=== PATIENT | female | born 1995 | race Caucasian/White ===

== ENCOUNTER 2016-06-22 18:45 | Emergency (ER) | payer MEDICAID ==
--- NOTE | 2016-06-22 19:01 | UCPHY ---
H & P Patient Type: Established HPI/ROS: HPI CHIEF COMPLAINT: Dysuria, urinary frequency HISTORY OF PRESENT ILLNESS: The patient very pleasant 21-year-old female significant past medical history for fibromyalgia, anxiety, comes urgent care with dysuria urinary frequency x4 days. No fever no vomiting. No significant abdominal pain. She thinks she may have a urinary tract infection. Past Medical History: Fibromyalgia, anxiety Past Surgical History: Appendectomy, cholecystectomy Social History: unemployed, denies drugs alcohol tobacco products Family History: noncontributory ROS REVIEW OF SYSTEMS: A comprehensive 10 point review of systems is otherwise negative aside from elements mentioned in the history of present illness. Exam Constitutional appears well nontoxic, triage nursing summary reviewed, vital signs reviewed, awake/alert. Eyes normal conjunctivae and sclera, EOMI, PERRLA. HENT normal inspection, atraumatic, moist mucus membranes, no epistaxis, neck supple/ no meningismus, no raccoon eyes. Respiratory clear to auscultation bilaterally, normal breath sounds, no respiratory distress, no wheezing. Cardiovascular rate normal, regular rhythm, no murmur, no edema, distal pulses normal. Gastrointestinal soft, non-tender, no rebound, no guarding, normal bowel sounds, no distension, no pulsatile mass. Genitourinary no CVA tenderness. Musculoskeletal no midline vertebral tenderness, full range of motion, no calf swelling, no tenderness of extremities, no meningismus, good pulses, neurovascularly intact. Skin pink, warm, & dry, no rash, skin atraumatic. Neurologic awake, alert and oriented x 3, AAOx3, moves all 4 extremities equally, motor intact, sensory intact, CN II-XII intact, normal cerebellar, normal vision, normal speech. Psychiatric normal mood/affect. Heme/Lymph/Immune no lymphadenopathy. Differential Diagnosis: includes but is not limited to in a particular order, urinary tract infection, cystitis, pyelonephritis. Medical Decision Making: Plan for this patient is to have a urinalysis. Re-evaluation: 1951: Urinalysis does not indicate that she has UTI of send a urine culture patient is requesting treatment anyway and she is having dysuria and urinary frequency. She denies vaginal complaints, denies vaginal discharge, denies lower abdominal pain. I will prescribe her Keflex and Pyridium. She understands return to the Urgent Care she has any worsening symptoms questions or concerns. Urine culture has been ordered. Source: Patient - Medical/Surgical History Hx Asthma: Yes Hx Chronic Respiratory Disease: No Hx Diabetes: No Hx Cardiac Disease: No Hx Renal Disease: No Hx Cirrhosis: No Hx Alcoholism: No Hx HIV/AIDS: No Hx Splenectomy or Spleen Trauma: No Other PMH: asthma. ibs - Family History Significant Family History: No pertinent family hx - Social History Smoking Status: Never smoked Constitutional: Initial Vital Signs Temperature (C) 36.6 C 06/22/16 19:14 Heart Rate 112 H 06/22/16 19:14 Respiratory Rate 18 06/22/16 19:14 Blood Pressure 115/78 06/22/16 19:14 O2 Sat (%) 96 06/22/16 19:14 O2 Delivery Mode Room Air Allergies/Adverse Reactions: haloperidol [From Haldol] Allergy (Verified 07/12/15 16:45) haloperidol lactate [From Haldol] Allergy (Verified 07/12/15 16:45) ketorolac tromethamine [From Toradol] Allergy (Verified 07/12/15 16:45) Home Medications: Medication Instructions Recorded Albuterol Hfa Anes Only 07/12/15 Ativan 06/22/16 Cephalexin [Keflex] 500 mg PO Q6H #28 cap 06/22/16 Cephalexin [Keflex] 500 mg PO Q6H #28 cap 06/22/16 LORazepam 06/22/16 Phenazopyridine HCl [Pyridium] 200 mg PO TID #6 tab 06/22/16 Zofran 06/22/16 traMADol 06/22/16 Medical Decision Making - Data Points Laboratory Results: 06/22/16 19:17 Urine Color YELLOW Urine Appearance CLEAR Urine pH 7.5 (5.0-7.5) Ur Specific [place] 1.015 (1.002-1.030) Urine Protein NEGATIVE (NEGATIVE) Urine Ketones NEGATIVE (NEGATIVE) Urine Blood NEGATIVE (NEGATIVE) Urine Nitrate NEGATIVE (NEGATIVE) Urine Bilirubin NEGATIVE (NEGATIVE) Urine Urobilinogen 0.2 EU EU (0.2-1.0) Ur Leukocyte Esterase NEGATIVE (NEGATIVE) Ur Culture Indicated? NOT INDICATED (NI) Urine Glucose NEGATIVE (NEGATIVE) Departure - Departure Disposition: Home, Routine, Self-Care Clinical Impression: UTI (urinary tract infection) Qualifiers: Urinary tract infection type: acute cystitis Hematuria presence: with hematuria Qualified Code(s): N30.01 - Acute cystitis with hematuria Condition: Good Instructions: Urinary Tract Infection in Women (ED) Additional Instructions: 1. Make sure to drink lots of fluids. 2. please take your antibiotic as prescribed. 3. return to the urgent care or emergency room if you have worsening symptoms questions or concerns. Prescriptions: Cephalexin [Keflex] 500 mg PO Q6H #28 cap Cephalexin [Keflex] 500 mg PO Q6H #28 cap Phenazopyridine HCl [Pyridium] 200 mg PO TID #6 tab - PQRS PQRS Measurement: n/ a
[2016-06-22 19:16] VITALS: BP 115/78; PULSE 112
[2016-06-22 19:21] LABS: COLOR YELLOW; LEUKOCYTE ESTERASE,URINE NEGATIVE (NEGATIVE); NITRITE,URINE NEGATIVE (NEGATIVE); PH,URINE 7.5 (5.0-7.5)
[2016-06-22 20:44] VITALS: RESP 20; TEMP 98.2; O2SAT 95
== END 2016-06-22 20:41 | disposition home or self-care (01) ==
LOC: CED 18:45
DX: N30.01 Acute cystitis with hematuria (principal); K58.9 Irritable bowel syndrome, unspecified; J45.909 Unspecified asthma, uncomplicated; Z90.49 Acquired absence of other specified parts of digestive tract; Z90.89 Acquired absence of other organs
CPT/HCPCS: 81003-PO; 99214-PO; G0463-PO

== ENCOUNTER 2016-11-11 16:58 | Emergency (ER) | payer MEDICAID ==
[2016-11-11 17:36] VITALS: RESP 20
[2016-11-11 17:37] LABS: COLOR YELLOW; LEUKOCYTE ESTERASE,URINE NEGATIVE (NEGATIVE); NITRITE,URINE NEGATIVE (NEGATIVE); PH,URINE 7.5 (5.0-7.5)
--- NOTE | 2016-11-11 17:41 | EDPHY ---
H & P Time Seen by Provider: 11/11/16 17:32 HPI/ROS: CHIEF COMPLAINT: Dysuria HISTORY OF PRESENT ILLNESS: Patient is a 21-year-old female who presents to the emergency department with dysuria, frequency, bilateral flank pain, and periumbilical pain. Her pain is mild to moderate. It is been present the past week. It has not changed in location or severity. Patient denies fevers or chills. Her last menstrual period was 2.5 weeks ago. She denies being sexually active. REVIEW OF SYSTEMS: My complete review of systems is negative except as mentioned in the HPI. Past Medical/Surgical History: Negative Past surgical history: Cholecystectomy, appendectomy Social history: The patient does not smoke Smoking Status: Never smoked Physical Exam: Vitals noted. Afebrile GENERAL: Well-appearing, in no acute distress, alert. HEENT: Eyes normal to inspection, normal pharynx, no signs of dehydration. NECK: No thyromegaly, no lymphadenopathy, supple. RESPIRATORY: Clear to auscultation bilaterally, no rales, rhonchi or wheezing. CVS: Regular rate and rhythm, no rubs, murmurs, or gallops. ABDOMEN: Soft, mild suprapubic tenderness to palpation with no rebound or guarding, nondistended, no organomegaly. BACK: Normal to inspection, no CVA tenderness. SKIN: Normal color, no rash, warm, dry. No pallor. EXTREMITIES: No pedal edema, no calf tenderness, no Homans sign or cords, no joint swelling. NEURO/PSYCH: [Alert and oriented x3, normal mood and affect, normal motor sensory exam. Constitutional: Initial Vital Signs Temperature (C) 36.7 C 11/11/16 17:34 Heart Rate 91 11/11/16 17:34 Respiratory Rate 20 11/11/16 17:34 Blood Pressure 113/78 11/11/16 17:34 O2 Sat (%) 93 11/11/16 17:34 O2 Delivery Mode Room Air Allergies/Adverse Reactions: haloperidol [From Haldol] Allergy (Verified 11/11/16 17:19) haloperidol lactate [From Haldol] Allergy (Verified 11/11/16 17:19) ketorolac tromethamine [From Toradol] Allergy (Verified 11/11/16 17:19) Home Medications: Medication Instructions Recorded Albuterol Hfa Anes Only 07/12/15 Ativan 06/22/16 LORazepam 06/22/16 Phenazopyridine HCl [Pyridium] 200 mg PO TID #6 tab 06/22/16 Zofran 06/22/16 traMADol 06/22/16 Cephalexin [Keflex (*)] 500 mg PO QID #12 cap 11/11/16 Phenazopyridine HCl [Pyridium] 100 mg PO TID #6 tab 11/11/16 Medical Decision Making ED Course/Re-evaluation: In the emergency department I discussed possible etiologies with the patient. I answered all her questions. Urine was obtained. Patient's urine had trace blood and trace bacteria. was negative. I re-evaluated the patient. She was sitting comfortably on the bed playing a video game. She was in no distress. On re-examination she had mild suprapubic tenderness to palpation. Discussed her urine findings. Urine culture will be sent. The patient was given Keflex 500 mg orally and Pyridium 200 mg orally for possible urinary tract infection. She was given a prescription. She is given warnings prior to leaving. She will return with worsening symptoms. She understands limitations of the workup thus far. Differential Diagnosis: Differential includes but is not limited to urinary tract infection, pyelonephritis, cystitis, , ectopic , ovarian cyst, ovarian torsion, STD Patient appears well on initial on repeat examination. She has focal suprapubic tenderness to palpation. Although her urine only showed trace bacteria and blood, 9 concerned that she could have an underlying urinary tract infection. She does not appear septic or toxic. Patient complains of bilateral flank discomfort but has no CVA tenderness on exam. I think pyelonephritis is less likely. - Data Points Laboratory Results: 11/11/16 11/11/16 17:30 17:30 Urine Color YELLOW Urine Appearance CLEAR Urine pH 7.5 (5.0-7.5) Ur Specific [place] 1.015 (1.002-1.030) Urine Protein NEGATIVE (NEGATIVE) Urine Ketones NEGATIVE (NEGATIVE) Urine Blood TRACE H (NEGATIVE) Urine Nitrate NEGATIVE (NEGATIVE) Urine Bilirubin NEGATIVE (NEGATIVE) Urine Urobilinogen 0.2 EU EU (0.2-1.0) Ur Leukocyte Esterase NEGATIVE (NEGATIVE) Urine RBC OCCASIONAL /hpf /hpf (0-3) Urine WBC NONE SEEN /hpf /hpf (0-3) Ur Epithelial Cells 2+ /lpf H /lpf (NONE-1+) Urine Bacteria TRACE /hpf H /hpf (NONE SEEN) Urine Glucose NEGATIVE (NEGATIVE) Urine Test NEGATIVE Departure - Departure Disposition: Home, Routine, Self-Care Clinical Impression: Urinary tract infection Qualifiers: Urinary tract infection type: acute cystitis Hematuria presence: with hematuria Qualified Code(s): N30.01 - Acute cystitis with hematuria Condition: Good Instructions: Urinary Tract Infection in Women (ED) Referrals: JULIET PICKARD [Other] - 5-7 days, call for appt. Prescriptions: Cephalexin [Keflex (*)] 500 mg PO QID #12 cap Phenazopyridine HCl [Pyridium] 100 mg PO TID #6 tab
[2016-11-11 17:52] LABS: BACTERIA TRACE /hpf (NONE SEEN); RBC,URINE OCCASIONAL /hpf (0-3); WBC,URINE NONE SEEN /hpf (0-3)
[2016-11-11] MEDS ORDERED: PHENAZOPYRIDINE HCL 200 MG TAB ONE (18:11)
[2016-11-11] MEDS ORDERED: PHENAZOPYRIDINE HCL 200 MG TAB PO ONE (18:13)
[2016-11-11] MEDS ORDERED: CEPHALEXIN 500 MG CAP PO ONE (18:13)
[2016-11-11 18:24] VITALS: BP 118/56; PULSE 88; TEMP 98.2; O2SAT 95
== END 2016-11-11 18:29 | disposition home or self-care (01) ==
LOC: CED 16:58
DX: N30.01 Acute cystitis with hematuria (principal); B96.20 Unspecified Escherichia coli [E. coli] as the cause of diseases classified elsewhere; Z90.49 Acquired absence of other specified parts of digestive tract
CPT/HCPCS: 81003-PO; 81015-PO; 81025-PO

== ENCOUNTER → 2016-12-31 | Outpatient (CLI) | payer MEDICAID | LOC: CIMAGING 08:44 | PROVIDERS: ATTEND Physician Assistant | DX: R10.10 Upper abdominal pain, unspecified (principal) | CPT/HCPCS: 76700-PO ==

== ENCOUNTER 2017-01-05 14:37 | Emergency (ER) | payer MEDICAID ==
[2017-01-05 14:48] VITALS: TEMP 98.1
--- NOTE | 2017-01-05 14:53 | EDPHY ---
HPI/HX/ROS/PE/MDM Narrative: CHIEF COMPLAINT: Abdominal pain, diarrhea HPI: The patient is a 21-year-old female with multiple medical problems including bipolar disorder, chronic abdominal pain, irritable bowel syndrome. She complains of several days of diffuse abdominal pain-"it hurts all over "as well as at up to 5 episodes of diarrhea a day. She states her current symptoms feel different than her chronic abdominal pain and feel more like an episode approximately 1 month ago when she was diagnosed with C diff. She was treated with oral antibiotics at that time. She denies fever. She denies blood in stool. REVIEW OF SYSTEMS: Aside from elements discussed in the HPI, a comprehensive 10-point review of systems was reviewed and is negative. PMH:Fibromyalgia. Numerous visits to ED for abdominal pain. Bipolar. Irritable bowel syndrome. History of C diff. SOCIAL HISTORY:Unemployed. Denies alcohol or drug use. PHYSICAL EXAM: General:Patient is alert, in no acute distress. ENT:Eyes are normal to inspection. ENT inspection normal. Neck: Normal inspection. Full range of motion. Respiratory:No respiratory distress. Breath sounds normal bilaterally. Cardiovascular: Regular rate and rhythm. Strong peripheral pulses. Normal cap refill. Abdomen:The abdomen is nontender to palpation. There are no peritoneal signs. There are normal bowel sounds. Back: Normal to inspection. No tenderness to palpation. Skin: Normal color. No rash. Warm and dry. Multiple parallel linear cm associated with cutting is present on left forearm. Extremities: Normal appearance. Full range of motion. Neuro: Oriented x3. Normal motor function. Normal sensory function. ED Course: Review of [facility] indicates: Indeterminate result C diff test on 11/19, negative C diff test on 11/26, both at [facility]. MDM: This is a young healthy female who presents with recurrent abdominal pain. She is concerned for C diff infection. However, her symptomatology does not seem consistent with this, nor does the fact that she has a normal blood work. I reviewed her chart on [facility], which indicates that the only positive test was action and indeterminate test followed by a negative test for C diff, so I question whether the patient truly had C diff at any point. The patient was able to provide us a stool sample after several attempts at trying. Given the fact that this has to be brown read over to the main hospital and then takes several more hours from there, we will discharge the patient home and have her call in for these results. If positive, she will require oral antibiotics for C diff infection. - Data Points Laboratory Results: Laboratory Results 01/05/17 15:10 01/05/17 15:10 01/05/17 01/05/17 01/05/17 16:50 15:10 15:10 WBC RBC Hgb Hct MCV MCH MCHC RDW Plt Count MPV Neut % (Auto) Lymph % (Auto) Wilkes % (Auto) Eos % (Auto) Baso % (Auto) Nucleat RBC Rel Count Absolute Neuts (auto) Absolute Lymphs (auto) Absolute Monos (auto) Absolute Eos (auto) Absolute Basos (auto) Absolute Nucleated RBC Immature Gran % Immature Gran # Sodium 141 mEq/L mEq/L (134-144) Potassium 3.9 mEq/L mEq/L (3.5-5.2) Chloride 104 mEq/L mEq/L (97-110) Carbon Dioxide 22 mEq/l mEq/l (22-31) Anion Gap 15 mEq/L mEq/L (8-16) BUN 9 mg/dL mg/dL (7-23) Creatinine 0.6 mg/dL mg/dL (0.6-1.0) Estimated GFR > 60 Glucose 95 mg/dL mg/dL (70-100) Calcium 9.6 mg/dL mg/dL (8.5-10.4) Beta HCG, Qual NEGATIVE C. difficile Tox (PCR) Pending 01/05/17 15:10 WBC 5.96 10^3/uL 10^3/uL (3.80-9.50) RBC 5.12 10^6/uL 10^6/uL (4.18-5.33) Hgb 14.4 g/dL g/dL (12.6-16.3) Hct 42.1 % % (38.0-47.0) MCV 82.2 fL fL (81.5-99.8) MCH 28.1 pg pg (27.9-34.1) MCHC 34.2 g/dL g/dL (32.4-36.7) RDW 13.2 % % (11.5-15.2) Plt Count 216 10^3/uL 10^3/uL (150-400) MPV 11.7 fL fL (8.7-11.7) Neut % (Auto) 67.4 % % (39.3-74.2) Lymph % (Auto) 23.7 % % (15.0-45.0) Wilkes % (Auto) 5.9 % % (4.5-13.0) Eos % (Auto) 2.2 % % (0.6-7.6) Baso % (Auto) 0.5 % % (0.3-1.7) Nucleat RBC Rel Count 0.0 % % (0.0-0.2) Absolute Neuts (auto) 4.02 10^3/uL 10^3/uL (1.70-6.50) Absolute Lymphs (auto) 1.41 10^3/uL 10^3/uL (1.00-3.00) Absolute Monos (auto) 0.35 10^3/uL 10^3/uL (0.30-0.80) Absolute Eos (auto) 0.13 10^3/uL 10^3/uL (0.03-0.40) Absolute Basos (auto) 0.03 10^3/uL 10^3/uL (0.02-0.10) Absolute Nucleated RBC 0.00 10^3/uL 10^3/uL (0-0.01) Immature Gran % 0.3 % % (0.0-1.1) Immature Gran # 0.02 10^3/uL 10^3/uL (0.00-0.10) Sodium Potassium Chloride Carbon Dioxide Anion Gap BUN Creatinine Estimated GFR Glucose Calcium Beta HCG, Qual C. difficile Tox (PCR) Medications Given: Discontinued Medications Sodium Chloride (Ns) 1,000 mls @ 0 mls/hr IV EDNOW ONE; Wide Open PRN Reason: Protocol Stop: 01/05/17 14:58 Last Admin: 01/05/17 15:18 Dose: 1,000 mls General Initial Vital Signs: Initial Vital Signs Temperature (C) 36.7 C 01/05/17 14:43 Heart Rate 96 01/05/17 14:43 Respiratory Rate 16 01/05/17 14:43 Blood Pressure 101/76 01/05/17 14:43 O2 Sat (%) 93 01/05/17 14:43 O2 Delivery Mode Room Air Allergies/Adverse Reactions: haloperidol [From Haldol] Allergy (Verified 01/05/17 14:48) haloperidol lactate [From Haldol] Allergy (Verified 01/05/17 14:48) ketorolac tromethamine [From Toradol] Allergy (Verified 01/05/17 14:48) Home Medications: Medication Instructions Recorded Albuterol Hfa Anes Only 07/12/15 Ativan 06/22/16 LORazepam 06/22/16 Zofran 06/22/16 traMADol 06/22/16 Departure - Departure Disposition: Home, Routine, Self-Care Clinical Impression: Abdominal pain, Diarrhea Condition: Good Instructions: Abdominal Pain (ED) Additional Instructions: Call back to the ER later this evening to obtain results of your C diff test. Return to the emergency department for fever, severe pain or other concerns. Referrals: JULIET PICKARD MD [Other] - As per Instructions
[2017-01-05] MEDS ORDERED: NS 1,000 ML IV ONE (14:57)
[2017-01-05 15:16] LABS: % IMMATURE GRANULYOCYTES 0.3 % (0.0-1.1); ABSOLUTE IMMATURE GRANULOCYTES 0.02 10^3/uL (0.00-0.10); ADD DIFF? NO; ADD MORPH? NO; ADD SCAN? NO; ATYPICAL LYMPHOCYTE FLAG 10 (0-99); FRAGMENT RBC FLAG 0 (0-99); HEMATOCRIT 42.1 % (38.0-47.0); HEMOGLOBIN 14.4 g/dL (12.6-16.3); LEFT SHIFT FLG 0 (0-99); LIPEMIA HEMOLYSIS FLAG 90 (0-99); MEAN CELL HEMOGLOBIN 28.1 pg (27.9-34.1); MEAN CELL HEMOGLOBIN CONCENTR. 34.2 g/dL (32.4-36.7); MEAN CELL VOLUME 82.2 fL (81.5-99.8); MEAN PLATELET VOLUME 11.7 fL (8.7-11.7); PLATELET CLUMPS FLAG 0 (0-99); PLATELET COUNT 216 10^3/uL (150-400); RED BLOOD CELL COUNT 5.12 10^6/uL (4.18-5.33); RED CELL DISTRIBUTION WIDTH 13.2 % (11.5-15.2)
[2017-01-05 15:36] LABS: ANION GAP 15 mEq/L (8-16); CALCIUM 9.6 mg/dL (8.5-10.4); CARBON DIOXIDE 22 mEq/l (22-31); CHLORIDE 104 mEq/L (97-110); CREATININE 0.6 mg/dL (0.6-1.0); GLOMERULAR FILTRATION RATE > 60; GLUCOSE 95 mg/dL (70-100); POTASSIUM 3.9 mEq/L (3.5-5.2); SODIUM 141 mEq/L (134-144)
[2017-01-05 16:22] VITALS: RESP 18; O2SAT 97
[2017-01-05 17:25] VITALS: BP 115/62; PULSE 78
== END 2017-01-05 17:24 | disposition home or self-care (01) ==
LOC: CED 14:37
DX: R19.7 Diarrhea, unspecified (principal); R10.9 Unspecified abdominal pain; E86.9 Volume depletion, unspecified
CPT/HCPCS: 80048-PO; 84703-PO; 85025-PO

== ENCOUNTER 2017-02-03 17:12 | Emergency (ER) | payer MEDICAID ==
[2017-02-03 17:26] VITALS: TEMP 97.7
[2017-02-03 17:28] LABS: COLOR YELLOW; LEUKOCYTE ESTERASE,URINE TRACE (NEGATIVE); NITRITE,URINE NEGATIVE (NEGATIVE)
[2017-02-03 17:42] LABS: MUCUS 3+ /lpf (NONE-1+); RBC,URINE NONE SEEN /hpf (0-3)
[2017-02-03] MEDS ORDERED: fentaNYL 100 MCG/2 ML INJ IVP ONE (17:47)
[2017-02-03] MEDS ORDERED: ONDANSETRON 4 MG/2 ML VIAL IVP ONE (17:47)
[2017-02-03] MEDS ORDERED: NS 1,000 ML IV ONE ×2 (17:47→19:23)
[2017-02-03 18:11] LABS: % IMMATURE GRANULYOCYTES 0.3 % (0.0-1.1); ABSOLUTE IMMATURE GRANULOCYTES 0.02 10^3/uL (0.00-0.10); ADD DIFF? NO; ADD MORPH? NO; ADD SCAN? NO; ATYPICAL LYMPHOCYTE FLAG 0 (0-99); FRAGMENT RBC FLAG 0 (0-99); HEMATOCRIT 46.4 % (38.0-47.0); LEFT SHIFT FLG 0 (0-99); LIPEMIA HEMOLYSIS FLAG 90 (0-99); MEAN CELL HEMOGLOBIN 28.3 pg (27.9-34.1); MEAN CELL HEMOGLOBIN CONCENTR. 34.5 g/dL (32.4-36.7); MEAN CELL VOLUME 82.1 fL (81.5-99.8); MEAN PLATELET VOLUME 11.5 fL (8.7-11.7); PLATELET CLUMPS FLAG 0 (0-99); PLATELET COUNT 246 10^3/uL (150-400); RED BLOOD CELL COUNT 5.65 10^6/uL (4.18-5.33); RED CELL DISTRIBUTION WIDTH 13.2 % (11.5-15.2)
[2017-02-03 18:28] LABS: ANION GAP 13 mEq/L (8-16); CALCIUM 9.8 mg/dL (8.5-10.4); CARBON DIOXIDE 23 mEq/l (22-31); CHLORIDE 103 mEq/L (97-110); CREATININE 0.7 mg/dL (0.6-1.0); GLOMERULAR FILTRATION RATE > 60; GLUCOSE 84 mg/dL (70-100); SODIUM 139 mEq/L (134-144)
[2017-02-03] MEDS ORDERED: HYDROmorphONE/DILAUDID 1 MG/ML INJ IVP ONE (19:25)
--- NOTE | 2017-02-03 19:44 | EDPHY ---
H & P Stated Complaint: burning with urination x 1 week, today developed low back pain Time Seen by Provider: 02/03/17 17:16 HPI/ROS: CHIEF COMPLAINT: Back pain, flank pain, abdominal pain HISTORY OF PRESENT ILLNESS: 21-year-old female who reports 5 days ago she developed urinary frequency and dysuria. The symptoms continued for 3-4 days. This morning she began to develop back pain, left greater than right as well as lower abdominal discomfort. Patient reports the pain feels like it goes from her left flank around to her bladder associated with nausea and chills. No vomiting. No fever. No diarrhea. No hematuria. No history of kidney stones. No diarrhea. Patient denies sexual activity. No vaginal discharge. LMP 1 week ago. REVIEW OF SYSTEMS: Aside from elements discussed in the HPI, a comprehensive 10-point review of systems was reviewed and is negative. PAST MEDICAL HISTORY: Fibromyalgia, irritable bowel. Status post cholecystectomy and appendectomy. SOCIAL HISTORY: Nonsmoker. VITAL SIGNS Reviewed by me. GENERAL: Well-developed, well-nourished, holding her left flank. HEENT: Atraumatic. Eyes: No icterus, no injection. Mouth: moist mucous membranes. No erythema or lesions. Neck: supple with no adenopathy. LUNGS: Clear to auscultation bilaterally, no wheezes, rhonchi or rales. CARDIAC: Regular rate and rhythm, no rubs, murmurs or gallops. ABDOMEN: Soft, mild diffuse tenderness. Most significant in the left upper quadrant. Mild bilateral lower quadrant tenderness. No guarding or rebound. BACK: Left CVA tenderness. EXTREMITIES: No trauma. No edema. Range of motion is normal throughout. NEURO: Alert and oriented, grossly nonfocal. SKIN: Warm and dry, no rash. PSYCHIATRIC: Normal mentation, no agitation. - Personal History LMP (Females 10-55): 8-14 Days Ago - Medical/Surgical History Hx Asthma: Yes Hx Chronic Respiratory Disease: No Hx Diabetes: No Hx Cardiac Disease: No Hx Renal Disease: No Hx Cirrhosis: No Hx Alcoholism: No Hx HIV/AIDS: No Hx Splenectomy or Spleen Trauma: No Other PMH: asthma, UTIs, C-Diff,. ibs, fibromyalgia - Social History Smoking Status: Never smoked Constitutional: Initial Vital Signs Temperature (C) 36.5 C 02/03/17 17:24 Heart Rate 104 H 02/03/17 17:24 Respiratory Rate 18 02/03/17 17:24 Blood Pressure 101/86 H 02/03/17 17:24 O2 Sat (%) 94 02/03/17 17:24 O2 Delivery Mode Room Air Allergies/Adverse Reactions: haloperidol [From Haldol] Allergy (Verified 02/03/17 17:15) haloperidol lactate [From Haldol] Allergy (Verified 02/03/17 17:15) ketorolac tromethamine [From Toradol] Allergy (Verified 02/03/17 17:15) Home Medications: Medication Instructions Recorded Albuterol Hfa Anes Only 07/12/15 Ativan 06/22/16 LORazepam 06/22/16 Zofran 06/22/16 traMADol 06/22/16 Dicyclomine [Bentyl 20 MG (*)] 20 mg PO QID PRN #15 tab 01/05/17 Medical Decision Making - Diagnostics Imaging Results: Imaging Impressions Abdomen/Pelvis CT 02/03/17 18:58 Impression: 1. There is no evidence of nephrolithiasis or obstructive uropathy. 2. Status post cholecystectomy. 3. Status post appendectomy. 4. Mild constipation. Attention: This CT examination is specifically designed to evaluate patients who are clinically suspected of having acute obstructive uropathy. This examination does not use radiographic contrast, and as such, provides only a limited evaluation of the abdomen, pelvis, and retroperitoneum. If there is further clinical suspicion for pathological conditions other than obstructive uropathy, a complete CT evaluation of the abdomen and pelvis utilizing intravenous, oral, and rectal contrast should be considered. Findings were discussed with Luisa Gracia MD at 19:25, on 02/03/2017. ED Course/Re-evaluation: 21-year-old female with a history of frequency and burning for 5 days. Patient now reports significant bilateral flank pain and low back pain worse on the left. On examination she has some flank tenderness and some diffuse abdominal tenderness most significant left upper quadrant and bilateral lower quadrants. Patient's evaluation demonstrates clean urine. IV was placed and patient received a L of normal saline. No white count. Normal chemistries. On re- examination the patient continues to report left flank pain with radiation into her lower quadrants. CT scan abdomen pelvis was ordered. No kidney stones. No signs of bowel obstruction. Ovaries are visualized and not enlarged. No free fluid. Mild constipation. Patient was reexamined on multiple occasions. She remains nontoxic but does continue to complain of mild diffuse abdominal tenderness again most remarkable in left upper quadrant and bilateral lower quadrants. She does have a history of irritable bowel. Patient was treated with Dilaudid and Zofran in the emergency department. She reports a allergy to Toradol. She also received tramadol and Tylenol. She was comfortable being discharged with instructions to treat her constipation with magnesium citrate, continue with a bland diet, use Zofran as needed for nausea, take tramadol as needed for pain. I do not believe patient needs further evaluation or imaging studies in the emergency department. However, should her symptoms worsen or persist she will return to the emergency department follow up with her primary care physician. Urine was sent for culture. Differential Diagnosis: Differential diagnosis of the patient's flank pain and abdominal pain was considered including but not limited to musculoskeletal causes, kidney stone, pyelonephritis, diverticulitis, pelvic source, and appendicitis. - Data Points Laboratory Results: Laboratory Results 02/03/17 18:04 02/03/17 18:04 02/03/17 02/03/17 02/03/17 18:04 18:04 18:04 WBC 6.33 10^3/uL 10^3/uL (3.80-9.50) RBC 5.65 10^6/uL H 10^6/uL (4.18-5.33) Hgb 16.0 g/dL g/dL (12.6-16.3) Hct 46.4 % % (38.0-47.0) MCV 82.1 fL fL (81.5-99.8) MCH 28.3 pg pg (27.9-34.1) MCHC 34.5 g/dL g/dL (32.4-36.7) RDW 13.2 % % (11.5-15.2) Plt Count 246 10^3/uL 10^3/uL (150-400) MPV 11.5 fL fL (8.7-11.7) Neut % (Auto) 68.9 % % (39.3-74.2) Lymph % (Auto) 23.2 % % (15.0-45.0) [place] % (Auto) 5.2 % % (4.5-13.0) Eos % (Auto) 1.9 % % (0.6-7.6) Baso % (Auto) 0.5 % % (0.3-1.7) Nucleat RBC Rel Count 0.0 % % (0.0-0.2) Absolute Neuts (auto) 4.36 10^3/uL 10^3/uL (1.70-6.50) Absolute Lymphs (auto) 1.47 10^3/uL 10^3/uL (1.00-3.00) Absolute Monos (auto) 0.33 10^3/uL 10^3/uL (0.30-0.80) Absolute Eos (auto) 0.12 10^3/uL 10^3/uL (0.03-0.40) Absolute Basos (auto) 0.03 10^3/uL 10^3/uL (0.02-0.10) Absolute Nucleated RBC 0.00 10^3/uL 10^3/uL (0-0.01) Immature Gran % 0.3 % % (0.0-1.1) Immature Gran # 0.02 10^3/uL 10^3/uL (0.00-0.10) Sodium 139 mEq/L mEq/L (134-144) Potassium 4.0 mEq/L mEq/L (3.5-5.2) Chloride 103 mEq/L mEq/L (97-110) Carbon Dioxide 23 mEq/l mEq/l (22-31) Anion Gap 13 mEq/L mEq/L (8-16) BUN 12 mg/dL mg/dL (7-23) Creatinine 0.7 mg/dL mg/dL (0.6-1.0) Estimated GFR > 60 Glucose 84 mg/dL mg/dL (70-100) Calcium 9.8 mg/dL mg/dL (8.5-10.4) Beta HCG, Qual NEGATIVE Urine Color Urine Appearance Urine pH Ur Specific [place] Urine Protein Urine Ketones Urine Blood Urine Nitrate Urine Bilirubin Urine Urobilinogen Ur Leukocyte Esterase Urine RBC Urine WBC Ur Epithelial Cells Ur Renal Epithelial Cell Urine Crystals Ammonium Urate Crystals Calcium Carbonate Cryst Calcium Phosphate Cryst Calcium Oxalate Crystal Leucine Crystals Cystine Crystals Uric Acid Crystals Triple Phos Crystals Sodium Urate Crystals Sulfonamide Crystals Cholesterol Crystals Tyrosine Crystals Bilirubin Crystals Amorphous Sediment Urine Bacteria Epithelial Casts Fatty Casts Hyaline Casts Granular Casts Waxy Casts Broad Casts RBC Casts WBC Casts Urine Mucus Urine Trichomonas Urine Yeast Urine Sperm Ur Oval Fat Bodies Ur Free Fat Droplets Ur Unidentified Matter Urine Glucose Urine Comment 02/03/17 17:20 WBC RBC Hgb Hct MCV MCH MCHC RDW Plt Count MPV Neut % (Auto) Lymph % (Auto) [place] % (Auto) Eos % (Auto) Baso % (Auto) Nucleat RBC Rel Count Absolute Neuts (auto) Absolute Lymphs (auto) Absolute Monos (auto) Absolute Eos (auto) Absolute Basos (auto) Absolute Nucleated RBC Immature Gran % Immature Gran # Sodium Potassium Chloride Carbon Dioxide Anion Gap BUN Creatinine Estimated GFR Glucose Calcium Beta HCG, Qual Urine Color YELLOW Urine Appearance HAZY Urine pH 6.0 (5.0-7.5) Ur Specific [place] 1.020 (1.002-1.030) Urine Protein NEGATIVE (NEGATIVE) Urine Ketones NEGATIVE (NEGATIVE) Urine Blood NEGATIVE (NEGATIVE) Urine Nitrate NEGATIVE (NEGATIVE) Urine Bilirubin NEGATIVE (NEGATIVE) Urine Urobilinogen 0.2 EU EU (0.2-1.0) Ur Leukocyte Esterase TRACE H (NEGATIVE) Urine RBC NONE SEEN /hpf /hpf (0-3) Urine WBC 1-3 /hpf /hpf (0-3) Ur Epithelial Cells 2+ /lpf H /lpf (NONE-1+) Ur Renal Epithelial Cell STAFF ASSISTANT Urine Crystals STAFF ASSISTANT Ammonium Urate Crystals STAFF ASSISTANT Calcium Carbonate Cryst STAFF ASSISTANT Calcium Phosphate Cryst STAFF ASSISTANT Calcium Oxalate Crystal STAFF ASSISTANT Leucine Crystals STAFF ASSISTANT Cystine Crystals STAFF ASSISTANT Uric Acid Crystals STAFF ASSISTANT Triple Phos Crystals STAFF ASSISTANT Sodium Urate Crystals STAFF ASSISTANT Sulfonamide Crystals STAFF ASSISTANT Cholesterol Crystals STAFF ASSISTANT Tyrosine Crystals STAFF ASSISTANT Bilirubin Crystals STAFF ASSISTANT Amorphous Sediment STAFF ASSISTANT Urine Bacteria STAFF ASSISTANT Epithelial Casts STAFF ASSISTANT Fatty Casts STAFF ASSISTANT Hyaline Casts STAFF ASSISTANT Granular Casts STAFF ASSISTANT Waxy Casts STAFF ASSISTANT Broad Casts STAFF ASSISTANT RBC Casts STAFF ASSISTANT WBC Casts STAFF ASSISTANT Urine Mucus 3+ /lpf H /lpf (NONE-1+) Urine Trichomonas STAFF ASSISTANT Urine Yeast STAFF ASSISTANT Urine Sperm STAFF ASSISTANT Ur Oval Fat Bodies STAFF ASSISTANT Ur Free Fat Droplets STAFF ASSISTANT Ur Unidentified Matter STAFF ASSISTANT Urine Glucose NEGATIVE (NEGATIVE) Urine Comment STAFF ASSISTANT Medications Given: Discontinued Medications Acetaminophen (Tylenol) 1,000 mg PO EDNOW ONE Stop: 02/03/17 19:57 Last Admin: 02/03/17 20:08 Dose: 1,000 mg Fentanyl (Sublimaze) 50 mcg IVP EDNOW ONE Stop: 10/26/17 17:48 Last Admin: 02/03/17 18:15 Dose: 50 mcg Hydromorphone HCl (Dilaudid) 0.5 mg IVP EDNOW ONE Stop: 02/03/17 19:26 Last Admin: 02/03/17 19:40 Dose: 0.5 mg Sodium Chloride (Ns) 1,000 mls @ 0 mls/hr IV ONCE ONE; Wide Open PRN Reason: Protocol Stop: 02/03/17 17:48 Last Admin: 02/03/17 18:15 Dose: 1,000 mls Sodium Chloride (Ns) 1,000 mls @ 0 mls/hr IV ONCE ONE PRN Reason: Wide Open Stop: 02/03/17 19:24 Last Admin: 02/03/17 19:40 Dose: 1,000 mls Ondansetron HCl (Zofran) 4 mg IVP EDNOW ONE Stop: 02/03/17 17:48 Last Admin: 02/03/17 18:15 Dose: 4 mg Tramadol HCl (Ultram) 50 mg PO EDNOW ONE Stop: 02/03/17 19:56 Last Admin: 02/03/17 20:09 Dose: 50 mg Departure - Departure Disposition: Home, Routine, Self-Care Clinical Impression: Left flank pain Abdominal pain Qualifiers: Abdominal location: left upper quadrant Qualified Code(s): R10.12 - Left upper quadrant pain Constipation Qualifiers: Constipation type: unspecified constipation type Qualified Code(s): K59.00 - Constipation, unspecified Condition: Good Instructions: Acute Abdominal Pain (ED), Flank Pain (ED) Additional Instructions: No specific cause of your back pain and abdominal pain has been identified. The urine has been sent for culture, however, preliminary testing does demonstrate an infection. There is no blood in her urine. There is no evidence of a kidney stone on your CT scan. There is no evidence of bowel obstruction on your CT scan. Your CT scan does show some constipation. Your blood work is within normal limits. I recommend that you obtain magnesium citrate at the grocery store. Please drink half the bottle, then wait 4 hours. If you do not have some stool output , please drink the rest of the bottle. Okay to use Tylenol, tramadol, and Bentyl for pain. Continue to push fluids. I suggested you start with a bland diet and advance as tolerated. This means start with clear liquids such as water, Gatorade, juice, flat non- caffeinated soda. If you tolerate clear liquids, then you may add bland foods such as bananas, rice, or toast. If you do not have any worsening of your symptoms, you may begin to resume a regular diet. Please follow up with her primary care physician next week. If your worsening despite the above treatment, especially if he develops a fever , vomiting, severe lower abdominal pain, radiation of the pain into your legs, vaginal discharge, or other concerns, please return to the emergency department or seek care urgently. Referrals: NONE *PRIMARY CARE P,. [Primary Care Provider] - As per Instructions
[2017-02-03] MEDS ORDERED: traMADol 50 MG TAB PO ONE (19:55)
[2017-02-03] MEDS ORDERED: ACETAMINOPHEN 500 MG TAB PO ONE (19:56)
[2017-02-03 20:12] VITALS: BP 109/66; PULSE 88; RESP 16; O2SAT 96
== END 2017-02-03 20:44 | disposition home or self-care (01) ==
LOC: CED 17:12
PROC: 3E0337Z Introduction of Electrolytic and Water Balance Substance into Peripheral Vein, Percutaneous Approach (ICD-10-PCS; principal; 2017-02-03)
DX: K59.00 Constipation, unspecified (principal); J45.909 Unspecified asthma, uncomplicated; E86.9 Volume depletion, unspecified; Z90.49 Acquired absence of other specified parts of digestive tract
CPT/HCPCS: 74176-PO; 80048-PO; 81003-PO; 81015-PO; 84703-PO; 85025-PO; 96374; J1170; J2405; J3010

== ENCOUNTER 2017-03-29 19:37 | Emergency (ER) | payer MEDICAID ==
[2017-03-29] MEDS ORDERED: METOCLOPRAMIDE 10 MG/2 ML VIAL IVP ONE (20:10)
[2017-03-29] MEDS ORDERED: NS 1,000 ML IV ONE (20:10)
--- NOTE | 2017-03-29 20:13 | EDPHY ---
H & P Stated Complaint: N/V/D since this AM. can't keep fluids/solids down. hx of IBS. Time Seen by Provider: 03/29/17 20:05 HPI/ROS: CHIEF COMPLAINT: Vomiting and diarrhea HISTORY OF PRESENT ILLNESS: The patient is a 21-year-old female with a history of frequent abdominal pain who comes to the emergency department complaining of diarrhea for the last 2 days and now epigastric pain and vomiting today. She has not had a fever. She denies heartburn. She denies blood in her vomit. She has a history of cholecystectomy as well as appendectomy. She denies risk of . No urinary symptoms. She has also had a "head cold "for the last week which began to resolve 2 days ago. She has not been on antibiotics. She was taking Flonase. She also has a remote history of C diff. She states that this does not feel similar to C diff. REVIEW OF SYSTEMS: Constitutional: denies: chills, fever, recent illness, recent injury EENTM: denies: blurred vision, double vision, nose congestion Respiratory: denies: cough, shortness of breath Cardiac: denies: chest pain, irregular heart rate, lightheadedness, palpitations Gastrointestinal/Abdominal: See HPI Genitourinary: denies: dysuria, frequency, hematuria, pain Musculoskeletal: denies: joint pain, muscle pain Skin: denies: lesions, rash, jaundice, bruising Neurological: denies: headache, numbness, paresthesia, tingling, dizziness, weakness Hematologic/Lymphatic: denies: blood clots, easy bleeding, easy bruising Immunologic/allergic: denies: HIV/AIDS, transplant EXAM: GENERAL: Well-appearing, well-nourished and in no acute distress. HEAD: Atraumatic, normocephalic. EYES: Pupils equal round and reactive to light, extraocular movements intact, sclera anicteric, conjunctiva are normal. ENT: TMs normal, nares patent, oropharynx clear without exudates. Moist mucous membranes. NECK: Normal range of motion, supple without lymphadenopathy or JVD. LUNGS: Breath sounds clear to auscultation bilaterally and equal. No wheezes rales or rhonchi. HEART: Regular rate and rhythm without murmurs, rubs or gallops. ABDOMEN: Mild epigastric tenderness, no guarding or rebound. BACK: No CVA tenderness, no spinal tenderness, step-offs or deformities EXTREMITIES: Normal range of motion, no pitting or edema. No clubbing or cyanosis. NEUROLOGICAL: Cranial nerves II through XII grossly intact. Normal speech, normal gait. 5/5 strength, normal movement in all extremities, normal sensation PSYCH: Normal mood, normal affect. SKIN: Warm, dry, normal turgor, no visible rashes or lesions. Source: Patient Exam Limitations: No limitations - Personal History LMP (Females 10-55): 1-7 Days Ago Current Tetanus Diphtheria and Acellular Pertussis (TDAP): Yes - Medical/Surgical History Hx Asthma: Yes Hx Chronic Respiratory Disease: No Hx Diabetes: No Hx Cardiac Disease: No Hx Renal Disease: No Hx Cirrhosis: No Hx Alcoholism: No Hx HIV/AIDS: No Hx Splenectomy or Spleen Trauma: No Other PMH: asthma, UTIs, C-Diff, bladder infections, appy, panic attacks,. ibs , fibromyalgia - Family History Significant Family History: No pertinent family hx - Social History Smoking Status: Never smoked Alcohol Use: Sober Drug Use: None Constitutional: Initial Vital Signs Temperature (C) 36.8 C 03/29/17 19:52 Heart Rate 95 03/29/17 19:52 Respiratory Rate 16 03/29/17 19:52 Blood Pressure 105/75 03/29/17 19:52 O2 Sat (%) 96 03/29/17 19:52 O2 Delivery Mode Room Air Allergies/Adverse Reactions: haloperidol [From Haldol] Allergy (Verified 03/29/17 19:50) haloperidol lactate [From Haldol] Allergy (Verified 03/29/17 19:50) ketorolac tromethamine [From Toradol] Allergy (Verified 03/29/17 19:50) Home Medications: Medication Instructions Recorded LORazepam 06/22/16 traMADol 06/22/16 Codeine/Promethazine [Phenergan W/ 5 ml PO Q6H 03/29/17 Codeine Syrup] Metoclopramide [Reglan 10 mg tab 10 mg PO BID PRN 7 Days tab 03/29/17 (RX)] Ondansetron HCl [Zofran] 03/29/17 Medical Decision Making - Diagnostics Imaging Results: X-ray: Abdominal x-ray was obtained. I viewed the images myself on the PACS system. My interpretation of the images is: Negative for free air or obstruction. The radiologist interpretation is pending. Imaging: I viewed and interpreted images myself ED Course/Re-evaluation: 9:15 p.m. the patient refused Toradol. She is feeling much better after Reglan. Her abdominal exam is benign. We discussed x-ray and lab results which are reassuring. She now endorses some heartburn type symptoms. I will treat her with a GI cocktail and continue to observe. She has not yet provided a urine sample but denies having any urinary symptoms. 10:25 p.m. the patient is feeling much better after the GI cocktail. Her abdominal exam remains benign. I will prescribe her Reglan and encouraged her to take her Pepcid daily. She states that she does not usually take it. We discussed indications for returning. Differential Diagnosis: Partial list of the Differential diagnosis considered include but were not limited to; peptic ulcer disease, gastroenteritis, food poisoning and although unlikely based on the history and physical exam, I also considered obstruction, perforation, retained stone, dissection, aneurysm, urinary tract infection, ovarian cyst, ovarian torsion. I discussed these differential diagnoses and the plan with the patient as well as the usual and expected course. The patient understands that the diagnosis is provisional and that in medicine we are not always correct and that further workup is often warranted. Usual and customary warnings were given. All of the patient's questions were answered. The patient was instructed to return to the emergency department should the symptoms at all worsen or return, otherwise to followup with the physician as we discussed. - Data Points Laboratory Results: Laboratory Results 03/29/17 20:31 03/29/17 20:31 Medications Given: Discontinued Medications Al Hydroxide/Mg Hydroxide (Maalox Susp) 30 ml PO ONCE ONE Stop: 03/29/17 21:17 Last Admin: 03/29/17 21:23 Dose: 30 ml Haloperidol Lactate (Haldol Injection) 2.5 mg IVP EDNOW ONE Stop: 03/29/17 20:36 Last Admin: 03/29/17 20:37 Dose: Not Given Hyoscyamine Sulfate (Levsin, Hyomax-Sl) 0.25 mg PO ONCE ONE Stop: 03/29/17 21:17 Last Admin: 03/29/17 21:24 Dose: 0.25 mg Sodium Chloride (Ns) 1,000 mls @ 0 mls/hr IV EDNOW ONE; Wide Open PRN Reason: Protocol Stop: 03/29/17 20:11 Last Admin: 03/29/17 20:51 Dose: 500 mls Ketorolac Tromethamine (Toradol) 15 mg IVP EDNOW ONE Stop: 03/29/17 20:11 Last Admin: 03/29/17 20:58 Dose: Not Given Lidocaine (Lidocaine 2% Viscous) 15 ml PO ONCE ONE Stop: 03/29/17 21:17 Last Admin: 03/29/17 21:23 Dose: 15 ml Metoclopramide HCl (Reglan Injection) 10 mg IVP EDNOW ONE Stop: 03/29/17 20:11 Last Admin: 03/29/17 20:51 Dose: 5 mg Departure - Departure Disposition: Home, Routine, Self-Care Clinical Impression: Vomiting and diarrhea Condition: Fair Instructions: Acute Nausea and Vomiting (ED) Referrals: NONE *PRIMARY CARE P,. [Primary Care Provider] - As per Instructions Robel Grimaldo MD [Medical Doctor] - As per Instructions Prescriptions: Metoclopramide [Reglan 10 mg tab (RX)] 10 mg PO BID PRN 7 Days tab PRN Reason: *Nausea & Vomiting
[2017-03-29] MEDS ORDERED: HALOPERIDOL LACT 5 MG/ML INJ IVP ONE (20:35)
[2017-03-29] MEDS: KETOROLAC 30 MG/1 ML SDV IVP ONE ×2 (20:35→20:58)
[2017-03-29 20:59] LABS: % IMMATURE GRANULYOCYTES 0.6 % (0.0-1.1); ABSOLUTE IMMATURE GRANULOCYTES 0.04 10^3/uL (0.00-0.10); ADD DIFF? NO; ADD MORPH? NO; ADD SCAN? NO; ATYPICAL LYMPHOCYTE FLAG 0 (0-99); FRAGMENT RBC FLAG 0 (0-99); HEMATOCRIT 42.7 % (38.0-47.0); HEMOGLOBIN 14.6 g/dL (12.6-16.3); LEFT SHIFT FLG 0 (0-99); LIPEMIA HEMOLYSIS FLAG 90 (0-99); MEAN CELL HEMOGLOBIN 28.1 pg (27.9-34.1); MEAN CELL HEMOGLOBIN CONCENTR. 34.2 g/dL (32.4-36.7); MEAN CELL VOLUME 82.3 fL (81.5-99.8); MEAN PLATELET VOLUME 11.7 fL (8.7-11.7); PLATELET CLUMPS FLAG 0 (0-99); PLATELET COUNT 221 10^3/uL (150-400); RED BLOOD CELL COUNT 5.19 10^6/uL (4.18-5.33)
[2017-03-29 21:12] LABS: ALANINE AMINOTRANSFERASE 43 IU/L (9-52); ALBUMIN 4.3 g/dL (3.5-5.0); ALKALINE PHOSPHATASE 87 IU/L (38-126); ANION GAP 15 mEq/L (8-16); ASPARTATE AMINOTRANSFERASE 21 IU/L (14-46); BILIRUBIN,TOTAL 0.4 mg/dL (0.1-1.4); BILIRUBIN-CONJUGATED 0.1 mg/dL (0.0-0.5); BILIRUBIN-UNCONJUGATED 0.3 mg/dL (0.0-1.1); CALCIUM 9.7 mg/dL (8.5-10.4); CARBON DIOXIDE 26 mEq/l (22-31); CHLORIDE 102 mEq/L (97-110); CREATININE 0.7 mg/dL (0.6-1.0); GLOMERULAR FILTRATION RATE > 60; GLUCOSE 95 mg/dL (70-100); POTASSIUM 4.1 mEq/L (3.5-5.2); SODIUM 143 mEq/L (134-144); TOTAL PROTEIN 7.4 g/dL (6.3-8.2)
[2017-03-29] MEDS ORDERED: MAG HYDROX/AL HYDROX/SIMETH 30 ML UDCUP PO ONE (21:16)
[2017-03-29] MEDS ORDERED: HYOSCYAMINE SULFATE 0.125 MG TAB PO ONE (21:16)
[2017-03-29] MEDS ORDERED: LIDOCAINE 2% VISCOUS 15 ML UDCUP PO ONE (21:16)
[2017-03-29 22:38] LABS: COLOR YELLOW; LEUKOCYTE ESTERASE,URINE NEGATIVE (NEGATIVE); NITRITE,URINE NEGATIVE (NEGATIVE)
[2017-03-29 22:40] VITALS: BP 105/68; PULSE 78; RESP 14; TEMP 98.2; O2SAT 95
[2017-03-29 22:46] LABS: MUCUS 2+ /lpf (NONE-1+)
[2017-03-29 22:47] LABS: BACTERIA TRACE /hpf (NONE SEEN); WBC,URINE 0-1 /hpf (0-3)
== END 2017-03-29 22:38 | disposition home or self-care (01) ==
LOC: CED 19:37
DX: R11.10 Vomiting, unspecified (principal); R19.7 Diarrhea, unspecified; J45.909 Unspecified asthma, uncomplicated; E86.9 Volume depletion, unspecified
CPT/HCPCS: 74022-PO; 80048-PO; 80076-PO; 81003-PO; 81015-PO; 83690-PO; 84703-PO; 85025-PO; 96374; J1885; J2765

== ENCOUNTER 2017-05-18 17:36 | Emergency (ER) | payer MEDICAID ==
--- NOTE | 2017-05-18 17:49 | EDPHY ---
H & P HPI/ROS: HPI CHIEF COMPLAINT: Dysuria HISTORY OF PRESENT ILLNESS: Patient very pleasant 22-year-old female she has a history of anxiety and depression, fibromyalgia and IBS, she presents emergency room with 1 week of dysuria and urinary frequency. Burning when she urinates. Denies fever or vomiting. States she does have some mild back pain. Denies chest pain or shortness of breath. Denies vaginal discharge or bleeding. Denies being . She thinks she may have a UTI. Past Medical History: Anxiety, depression, fibromyalgia, IBS Past Surgical History: No recent surgery Social History: Denies daily use drugs alcohol tobacco. Unemployed. Family History: Noncontributory ROS REVIEW OF SYSTEMS: A comprehensive 10 point review of systems is otherwise negative aside from elements mentioned in the history of present illness. Exam Constitutional appears well nontoxic no acute distress, triage nursing summary reviewed, vital signs reviewed, awake/alert. Eyes normal conjunctivae and sclera, EOMI, PERRLA. HENT normal inspection, atraumatic, moist mucus membranes, no epistaxis, neck supple/ no meningismus, no raccoon eyes. Respiratory clear to auscultation bilaterally, normal breath sounds, no respiratory distress, no wheezing. Cardiovascular rate normal, regular rhythm, no murmur, no edema, distal pulses normal. Gastrointestinal soft, non-tender, no rebound, no guarding, normal bowel sounds, no distension, no pulsatile mass. Genitourinary no CVA tenderness. Musculoskeletal no midline vertebral tenderness, full range of motion, no calf swelling, no tenderness of extremities, no meningismus, good pulses, neurovascularly intact. Skin pink, warm, & dry, no rash, skin atraumatic. Neurologic awake, alert and oriented x 3, AAOx3, moves all 4 extremities equally, motor intact, sensory intact, CN II-XII intact, normal cerebellar, normal vision, normal speech. Psychiatric normal mood/affect. Heme/Lymph/Immune no lymphadenopathy. Differential Diagnosis: Includes but is not limited to in a particular order, UTI cystitis, pyelonephritis Medical Decision Making: Plan for this patient check urinalysis. Will treat for UTI given symptoms. Re-evaluation: 1821: I did go over the patient's urinalysis and test with her. Her urinalysis does not indicate she has a bed urinary tract infection. However she complains of dysuria, bilateral CVA pain, and some very mild suprapubic pain. She would like to be treated for urinary tract infection anyway. I discussed return precautions with her. I will provide her Keflex and peridium. I do recommend she drink lots of fluids stay well-hydrated. If she develops worsening abdominal pain pelvic pain fever vomiting she needs return emergency room she understands this. I will send urine culture. The urinalysis is not really showing UTI discussed this with her however she still wants to be treated. Keflex and peridium provided. Return precautions discussed. I did offer a pelvic exam. She declined any vaginal discharge or pelvic exam. Source: Patient - Medical/Surgical History Hx Asthma: Yes Hx Chronic Respiratory Disease: No Hx Diabetes: No Hx Cardiac Disease: No Hx Renal Disease: No Hx Cirrhosis: No Hx Alcoholism: No Hx HIV/AIDS: No Hx Splenectomy or Spleen Trauma: No Other PMH: asthma, UTIs, C-Diff, bladder infections, appy, panic attacks,. ibs , fibromyalgia - Social History Smoking Status: Never smoked Constitutional: Initial Vital Signs Temperature (C) 36.6 C 05/18/17 17:44 Heart Rate 100 05/18/17 17:44 Respiratory Rate 18 05/18/17 17:44 Blood Pressure 107/74 05/18/17 17:44 O2 Sat (%) 96 05/18/17 17:44 O2 Delivery Mode Room Air Allergies/Adverse Reactions: haloperidol [From Haldol] Allergy (Verified 05/18/17 17:43) haloperidol lactate [From Haldol] Allergy (Verified 05/18/17 17:43) ketorolac tromethamine [From Toradol] Allergy (Verified 05/18/17 17:43) Home Medications: Medication Instructions Recorded LORazepam 06/22/16 traMADol 06/22/16 Ondansetron HCl [Zofran] 03/29/17 Cephalexin [Keflex] 500 mg PO Q6H #28 cap 05/18/17 Phenazopyridine HCl [Pyridium] 200 mg PO TID #15 tab 05/18/17 Seroquel 05/18/17 Medical Decision Making - Data Points Laboratory Results: 05/18/17 05/18/17 18:00 18:00 Urine Color YELLOW Urine Appearance CLEAR Urine pH 5.5 (5.0-7.5) Ur Specific [place] >= 1.030 (1.002-1.030) Urine Protein NEGATIVE (NEGATIVE) Urine Ketones TRACE H (NEGATIVE) Urine Blood NEGATIVE (NEGATIVE) Urine Nitrate NEGATIVE (NEGATIVE) Urine Bilirubin NEGATIVE (NEGATIVE) Urine Urobilinogen 0.2 EU EU (0.2-1.0) Ur Leukocyte Esterase NEGATIVE (NEGATIVE) Urine Glucose NEGATIVE (NEGATIVE) Urine Test NEGATIVE Departure - Departure Disposition: Home, Routine, Self-Care Clinical Impression: UTI (urinary tract infection) Qualifiers: Urinary tract infection type: acute cystitis Hematuria presence: with hematuria Qualified Code(s): N30.01 - Acute cystitis with hematuria Condition: Good Instructions: Urinary Tract Infection in Women (ED) Additional Instructions: 1. Drink lots of fluids stay well-hydrated. 2. Antibiotics as prescribed. 3. Pyridium as prescribed. 4. Return emergency room if there is worsening symptoms questions or concerns. Referrals: NONE *PRIMARY CARE P,. [Primary Care Provider] - As per Instructions Prescriptions: Cephalexin [Keflex] 500 mg PO Q6H #28 cap Phenazopyridine HCl [Pyridium] 200 mg PO TID #15 tab
[2017-05-18 19:34] VITALS: BP 113/75; PULSE 95; RESP 20; TEMP 98.1; O2SAT 95
== END 2017-05-18 19:34 | disposition home or self-care (01) ==
LOC: CED 17:36
DX: N30.01 Acute cystitis with hematuria (principal); J45.909 Unspecified asthma, uncomplicated
CPT/HCPCS: 81003-PO; 81025-PO

== ENCOUNTER 2017-05-28 13:56 | Emergency (ER) | payer MEDICAID ==
[2017-05-28 14:16] VITALS: RESP 20; TEMP 98.4
[2017-05-28 15:12] VITALS: BP 112/77; PULSE 86; O2SAT 94
--- NOTE | 2017-05-28 15:12 | EDPHY ---
H & P Stated Complaint: left side pain on inspiration Time Seen by Provider: 05/28/17 14:15 HPI/ROS: CHIEF COMPLAINT: Left lower rib pain after falling HISTORY OF PRESENT ILLNESS: This is a 22-year-old female with a history of fibromyalgia who fell yesterday while carrying some boxes. She slipped, landed on her left side. She has had pain in her left lower ribcage since the fall. She has pain when she takes a deep breath. She tried ibuprofen last night and this morning took a tramadol with some relief. However, the pain persists. She does not feel short of breath. She denies neck, back, or abdominal pain. She does report some left shoulder pain since the fall. She denies numbness or weakness. REVIEW OF SYSTEMS: A ten point review of systems was performed and is negative with the exception of the items mentioned in the HPI. Past medical history: 1. Fibromyalgia 2. Anxiety and depression 3. Irritable bowel syndrome Past surgical history: 1. Cholecystectomy 2. Appendectomy Social history: She is unemployed. She is single. She does not use tobacco products. General Appearance: Alert. Vital signs reviewed. Eyes: Pupils equal and round, no conjunctival injection, no discharge. Anicteric. ENT, Mouth: Mucous membranes are moist, no oropharyngeal erythema or edema. Neck: No lymphadenopathy, supple. Respiratory: Lungs are clear to auscultation; no wheezes, rales, or rhonchi. Thorax: Tender to palpation over the left lower anterolateral rib cage. No crepitus. No palpable deformity. Cardiovascular: Regular rate and rhythm; no murmur, rub, or gallop. Gastrointestinal: Abdomen is soft and nontender, no masses or organomegaly, bowel sounds normal. Skin: Warm and dry, no rashes on exposed skin, normal color. Back: Nontender to palpation over the thoracolumbar spine. No CVAT. Extremities: No lower extremity edema, no calf tenderness or swelling. Full active range of motion of her left shoulder. Neurological: Alert and oriented. Moving all four extremities easily and equally. Psychiatric: Normal affect. - Personal History LMP (Females 10-55): Unknown Current Tetanus/Diphtheria Vaccine: Yes Current Tetanus Diphtheria and Acellular Pertussis (TDAP): Yes - Medical/Surgical History Hx Asthma: Yes Hx Chronic Respiratory Disease: No Hx Diabetes: No Hx Cardiac Disease: No Hx Renal Disease: No Hx Cirrhosis: No Hx Alcoholism: No Hx HIV/AIDS: No Hx Splenectomy or Spleen Trauma: No Other PMH: asthma, UTIs, C-Diff, bladder infections, appy, panic attacks,. ibs , fibromyalgia, bipolar - Social History Smoking Status: Never smoked Constitutional: Initial Vital Signs Temperature (C) 36.9 C 05/28/17 14:13 Heart Rate 92 05/28/17 14:13 Respiratory Rate 20 05/28/17 14:13 Blood Pressure 106/84 H 05/28/17 14:13 O2 Sat (%) 93 05/28/17 14:13 O2 Delivery Mode Room Air Allergies/Adverse Reactions: haloperidol [From Haldol] Allergy (Verified 05/28/17 14:09) haloperidol lactate [From Haldol] Allergy (Verified 05/28/17 14:09) ketorolac tromethamine [From Toradol] Allergy (Verified 05/28/17 14:09) Home Medications: Medication Instructions Recorded LORazepam 06/22/16 traMADol 06/22/16 Ondansetron HCl [Zofran] 03/29/17 Phenazopyridine HCl [Pyridium] 200 mg PO TID #15 tab 05/18/17 Seroquel 05/18/17 Latuda 05/28/17 Medical Decision Making - Diagnostics Imaging Results: Imaging Impressions Chest X-Ray 05/28/17 14:18 Impression: Normal chest. ED Course/Re-evaluation: Test this Great does not show pneumothorax or rib fracture. Patient was reassured. She has tramadol at home and will use this if needed. Tylenol and ibuprofen usage reviewed with her. Incentive spirometer was applied. She was instructed in its use. Danger signs were reviewed. Differential Diagnosis: I considered a differential diagnosis that includes but is not limited to rib fracture, pneumothorax, rib contusion, chest/thorax abrasion, and shingles. Departure - Departure Disposition: Home, Routine, Self-Care Clinical Impression: Rib pain on left side Condition: Good Instructions: Rib Contusion (ED) Additional Instructions: We do not see a broken rib or collapsed lung on your chest x-ray. Use the incentive spirometer every couple of hours while awake. You can take your tramadol if needed for severe pain. Adult Pain & Fever Control: We recommend Acetaminophen (Tylenol) and Ibuprofen (Motrin,Advil) for pain and fever control. When fever is high or pain severe, both drugs can be used at the same time, but at different intervals. Please note the time differences. Your dose is: Acetaminophen 650mg every 4 to 6 hours Ibuprofen 400mg every 6 hours with food OR Note: do not take Acetaminophen with Hydrocodone (Vicodin, Lortab) or Oycodone (Percocet). These medications also contain Acetaminophen. No more than 3000mg of Acetaminophen should be taken in 24 hours (for an adult). Referrals: JULIET PICKARD [Other] - As per Instructions
== END 2017-05-28 15:27 | disposition home or self-care (01) ==
LOC: CED 13:56
DX: S29.9XXA Unspecified injury of thorax, initial encounter (principal); J45.909 Unspecified asthma, uncomplicated; W01.0XXA Fall on same level from slipping, tripping and stumbling without subsequent striking against object, initial encounter; Y99.8 Other external cause status; Y93.89 Activity, other specified
CPT/HCPCS: 71046-PO

== ENCOUNTER 2017-11-06 14:58 | Emergency (ER) | payer MEDICAID, OTHER ==
[2017-11-06] MEDS ORDERED: LORazepam 0.5 MG TAB PO ONE (15:28)
--- NOTE | 2017-11-06 15:38 | EDPHY ---
H & P Time Seen by Provider: 11/06/17 15:01 HPI/ROS: CHIEF COMPLAINT: Shortness of breath HISTORY OF PRESENT ILLNESS: Patient states about 1 hr ago when she was at home she developed chest discomfort, dizziness, shakiness. She states she has felt "numb and tingly". Also described as"a ball in my throat"where she can't take a deep breath or where it hurts to take a deep breath. Currently she is still having symptoms although not as severe. She does have nausea but no vomiting. She denies wheezing or cough. She has had no upper respiratory infectious symptoms. She does state that she has had some urinary frequency over the last few days but no fever. Patient does have history of anxiety and states that she has been out of her lorazepam for approximately 4 days. She tried using albuterol when symptoms began which did not help. Last menstrual period 1 and half weeks ago. REVIEW OF SYSTEMS: Constitutional: No fever, no chills. Eyes: No discharge. ENT: No sore throat. Cardiovascular: Chest pain, shakiness. Respiratory: No cough, shortness of breath per HPI Gastrointestinal: No abdominal pain, no vomiting. Genitourinary: No dysuria. Some frequency. Musculoskeletal: No back pain. Skin: No rashes. Neurological: No headache. General Appearance: Alert, no distress. Eyes: Pupils equal and round no pallor or injection. ENT, Mouth: Mucous membranes moist. Respiratory: There are no retractions, lungs are clear to auscultation. Cardiovascular: Regular rate and rhythm. Gastrointestinal: Abdomen is soft and nontender, no masses, bowel sounds normal. Neurological: Awake and alert, no focal neurologic deficits. Some mild upper extremity tremor. Skin: Warm and dry, no rashes. Musculoskeletal: Neck is supple nontender. Extremities are symmetrical, full range of motion, no edema. Psychiatric: Patient is oriented X 3, there is no agitation. Medical/surgical history: Asthma, fibromyalgia, bipolar disorder, irritable bowel syndrome, frequent UTIs. Surgeries include appendectomy and cholecystectomy. Social history: Denies tobacco, alcohol, drugs. Smoking Status: Never smoked Constitutional: Initial Vital Signs Temperature (C) 36.9 C 11/06/17 15:09 Heart Rate 97 11/06/17 15:09 Respiratory Rate 16 11/06/17 15:09 Blood Pressure 121/69 H 11/06/17 15:09 O2 Sat (%) 98 11/06/17 15:09 O2 Delivery Mode Room Air Allergies/Adverse Reactions: haloperidol [From Haldol] Allergy (Verified 05/28/17 14:09) haloperidol lactate [From Haldol] Allergy (Verified 05/28/17 14:09) ketorolac tromethamine [From Toradol] Allergy (Verified 05/28/17 14:09) Home Medications: Medication Instructions Recorded LORazepam 06/22/16 traMADol 06/22/16 Seroquel 05/18/17 Latuda 05/28/17 Albuterol 11/06/17 Benadryl 11/06/17 Medical Decision Making ED Course/Re-evaluation: 4:15 p.m. Re-evaluation shows patient feeling a little bit better. States chest symptoms are gone. Head is clear. Differential Diagnosis: Differential diagnosis includes but is not limited to asthma exacerbation, upper respiratory infection, pneumonia, anxiety, panic attack. After evaluation patient is signs and symptoms most consistent with anxiety attack versus mild withdrawal from lack of lorazepam over the last 4 days. No indication of hypoxia, wheezing, infectious etiology. Given lorazepam prepack and the 1 mg tablets were broken in half to replicate her 0.5 mg normal home dose. Strongly warned not to increase her dose of lorazepam. Mother will investigate refill through her primary care physician tomorrow. Stable for discharge. - Data Points Medications Given: Discontinued Medications Lorazepam (Ativan) 0.5 mg PO EDNOW ONE Stop: 11/06/17 15:29 Last Admin: 11/06/17 15:31 Dose: 0.5 mg Lorazepam (Ativan 1 Mg Prepack#4) 1 btl TAKEHOME EDNOW ONE Stop: 11/06/17 16:17 Last Admin: 11/06/17 16:31 Dose: 1 btl Point of Care Test Results: Urine Collection Date 11/06/17 Collection Time 15:42 HCG Results Negative Urine Dip Collection Date 11/06/17 Collection Time 15:41 Specific [place] (1.002-1.030) 1.010 PH (5.0-7.5) 7.0 Leukocytes (Negative) Negative Nitrites (Negative) Negative Protein (Negative) Negative Glucose (Negative) Negative Ketones (Negative) Negative Urobilnogen (0.2-1.0 EU) 0.2 Bilirubin (Negative) Negative Blood (Negative) Negative Departure - Departure Disposition: Home, Routine, Self-Care Clinical Impression: Anxiety Condition: Good Instructions: Anxiety (ED) Additional Instructions: Call your primary care doctor's office tomorrow for refill of you medication. Do not increase ear normal dose of the lorazepam. Return to the emergency department if symptoms become more severe or for other concerns. Referrals: Faustino Márquez MD [Primary Care Provider] - As per Instructions
[2017-11-06] MEDS ORDERED: LORAZEPAM 1 MG PREPACK#4 BTL TAKEHOME ONE (16:16)
[2017-11-06 16:39] VITALS: BP 110/62
== END 2017-11-06 16:34 | disposition home or self-care (01) ==
LOC: CED 14:58
DX: F41.9 Anxiety disorder, unspecified (principal)